=== PATIENT | male | born 1990 | race Caucasian/White ===

== ENCOUNTER 2023-05-30 16:32 | Emergency (ER) | payer OTHER, SELFPAY ==
--- NOTE | ~2023-05-30 | XR_ITS ---
XR forearm RT 2V 05/30/2023 16:53 INDICATION: Right arm pain. PROCEDURE: 2 views right forearm COMPARISON: No prior studies for comparison. FINDINGS: Fracture, dislocation or subluxation is not identified. The soft tissues appear within norm al limits. No foreign bodies are identified. IMPRESSION: 1: NO ACUTE BONE OR JOINT ABNORMALITY IDENTIFIED. Reviewed, dictated and finalized at location L.
[2023-05-30 16:38] VITALS: BP 137/85; PULSE 67; RESP 16; TEMP 36.3; O2SAT 100
--- NOTE | 2023-05-30 16:43 | ED.UPPEXIN ---
HPI - Extremity Injury (Upper) General Chief Complaint: Extremity Injury, Upper Stated Complaint: Right Arm Injury Source: patient and RN notes reviewed History of Present Illness HPI narrative: 32-year-old male presents to urgent care complaints of right forearm pain and swelling. Patient states 1 week ago he was 4 wheeling and denies any known injury but noticed and began to have pain in this area afterwards. Patient is also reporting some tingling in his right fingers are min. Denies any wrist pain, fevers, chills, chest shortness of breath, or other complaints. Patient has taken Tylenol at home with minimal relief. Related Data Home Medications Medication Instructions Recorded Confirmed No Home Medications 05/30/23 05/30/23 Allergies Allergy/AdvReac Type Severity Reaction Status Date / Time No Known Allergies Allergy Verified 05/30/23 16:48 Review of Systems Review of Systems: CONSTITUTIONAL: Denies fever, chills, or sweats. EYES: Denies visual changes, redness, or discharge. ENT: Denies otalgia and sore throat CARDIOVASCULAR: Denies chest pain, palpitations, or edema. RESPIRATORY: Denies cough or dyspnea. GASTROINTESTINAL: Denies abdominal pain, nausea, vomiting, or diarrhea. GENITOURINARY: Denies dysuria or hematuria. SKIN: Denies rash or itching. MUSCULOSKELETAL: Right forearm pain NEUROLOGIC: Denies headache, numbness, or weakness. Pertinent positives per HPI. PMFSH Comments At the time of my signature, I reviewed and agree with the nursing past medical, surgical, social, and family history. There is no relevant family history pertinent to the patient complaint. Exam Narrative: GENERAL: This is a well-nourished, well-developed patient, in no apparent distress. HEAD: normocephalic, atraumatic. EYES: Sclera clear/white. Vision is grossly intact. EARS: External ears normal, auditory canals clear and without drainage. Hearing grossly intact. NOSE: External nose normal with no obvious nasal discharge, nares without redness, no rhinorrhea. THROAT: Mucous membranes moist, posterior pharynx clear. NECK: Neck supple, non-tender without lymphadenopathy, masses or thyromegaly. CARDIOVASCULAR: Regular rate and rhythm without murmurs, gallops, or rubs. RESPIRATORY: Clear to auscultation. Breath sounds equal bilaterally. No wheezes, rales, or rhonchi. GASTROINTESTINAL: Abdomen soft, non-tender, nondistended. Bowel sounds are active. No hepato-splenomegaly, or palpable masses. No guarding. SKIN: warm, intact with no suspicious lesions or rash, good texture and turgor. NEURO: awake, alert, and oriented to person, place and time. There were no obvious focal neurologic abnormalities. EXTREMITIES: Slight swelling and tednerness to right distal forearm, on radial side. Pt has full ROM. BACK: Nontender without deformity or crepitus. No flank tenderness. Course Course Level of Care: Express Care Visit Vital Signs Vital signs: Vital Signs Temperature 97.3 F L 05/30/23 16:38 Pulse Rate 67 05/30/23 16:38 Respiratory Rate 16 05/30/23 16:38 Blood Pressure 137/85 05/30/23 16:38 Pulse Oximetry 100 05/30/23 16:38 Oxygen Delivery Room Air 05/30/23 16:38 Temperature 97.3 F L 05/30/23 16:38 Pulse Rate 67 05/30/23 16:38 Respiratory Rate 16 05/30/23 16:38 Blood Pressure 137/85 05/30/23 16:38 Pulse Oximetry 100 05/30/23 16:38 Oxygen Delivery Room Air 05/30/23 16:38 Reviewed MDM - Extremity Injury (Upper) MDM Narrative Medical decision making narrative: Use the RICE method at home. May take ibuprofen and/or Tylenol if needed. If symptoms persist in 1 week after conservative treatment, follow-up with specialist. Differential Diagnosis Differential diagnosis: Likely sprain and strain of wrist, fracture of wrist and other (tendonitis) Imaging Data Radiologist's impression: [facility] [id number] [place] [address] XRay Report Signed
== END 2023-05-30 17:30 | disposition home or self-care (01) ==
PROVIDERS: Emergency Provider Nurse Practitioner Family
DX: S56.911A Strain of unspecified muscles, fascia and tendons at forearm level, right arm, initial encounter (principal); X58.XXXA Exposure to other specified factors, initial encounter
CPT/HCPCS: 73090; 99213; G0463

== ENCOUNTER 2024-07-28 15:52 | Emergency (ER) | payer OTHER, SELFPAY ==
[2024-07-28 15:59] VITALS: BP 132/87; PULSE 84; RESP 16; TEMP 36.7; O2SAT 98
--- NOTE | 2024-07-28 16:12 | ED.URI ---
HPI - URI/Sore Throat General Chief Complaint: Upper Respiratory Infection Stated Complaint: Sore Throat Time Seen by Provider: 07/28/24 16:10 Source: patient, RN notes reviewed and old records reviewed Mode of arrival: ambulatory Limitations: no limitations History of Present Illness HPI Narrative: 33year old male who presents to [facility] care with complaints of scratchy sore throat for 2 to 3 days with some runny nose and cough with no known fevers noted or any chills or sweats. Patient reports that it hurts to swallow. Patient reports that he has been taking DayQuil and NyQuil for his symptoms MD elicited complaint: cough, sore throat, rhinorrhea and nasal congestion Onset (ago): day(s) (2 to 3 days) Consistency: constant Pain scale (0-10): 3 Able to tolerate fluids by mouth: Yes Treatments prior to arrival: other (DayQuil) Related Data Allergies Allergy/AdvReac Type Severity Reaction Status Date / Time No Known Allergies Allergy Verified 07/28/24 16:10 Review of Systems Review of Systems: CONSTITUTIONAL: Reports malaise,no chills, sweats, or fever. EYES: Denies visual changes, redness, or discharge. ENT: Reports rhinorrhea, congestion,no sinus pain, no otalgia and positive for sore throat. CARDIOVASCULAR: Denies chest pain, palpitations, or edema. RESPIRATORY: Reports cough.? Denies dyspnea. GASTROINTESTINAL: Denies abdominal pain, nausea, vomiting, diarrhea SKIN: Denies rash or itching. MUSCULOSKELETAL: Denies myalgia. NEUROLOGIC: Denies headache. All systems reviewed & are unremarkable except as noted in HPI and below PMFSH Past Medical History Medical History (Updated 07/29/24 @ 16:13 by Marie Ash NP) Fracture of wrist Surgical History Surgical History (Updated 07/29/24 @ 16:12 by Marie Ash NP) Hx of tooth extraction Social History Social History (Updated 07/29/24 @ 16:07 by Marie Ash NP) Smoking status: Current every day smoker Tobacco type: e-cigarettes/vaping Alcohol intake: current Alcohol use details: social Substance use type: does not use Gender identity (if verbalized by the patient): Male Comments At time of signature, agree with nursing past medical, surgical, social and family history. There is no relevant family history pertinent to the presenting complaint Exam Narrative: GENERAL: Well-appearing, well-nourished, and in no acute distress. HEAD: Normocephalic EYES: PERRLA, conjunctivae clear ENT: Nares clear, turbinates edematous and erythematous, clear discharge. Mucous membranes moist. TM pearly jarrett with dull light reflex bilaterally; no tragal tenderness. Oropharynx erythematous without lesions. Tonsils not enlarged and without exudate, no drooling, no hoarseness, no trismus, uvula midline, post nasal drainage noted. NECK: Supple. No lymphadenopathy CHEST: Clear to auscultation, breath sounds equal. No wheezing, rhonchi, rales, or stridor. No respiratory distress, speaks in full sentences.cough noted SAO2 98% on room air HEART: Regular rate and rhythm. No murmur heard. SKIN: Warm, dry, no rash. NEURO: Alert and oriented x3. PSYCH: Normal mood and affect Course Course Emergency Course: Patient is aware of diagnosis, understands and agrees to treatment plan.? Anticipatory guidance given.? Patient agrees to follow-up as directed and is aware of reasons to seek care at the emergency department. Portions of this record may have been created with voice recognition software Level of Care: Express Care Visit Vital Signs Vital signs: Vital Signs Temperature 36.7 C 07/28/24 15:59 Pulse Rate 84 07/28/24 15:59 Respiratory Rate 16 07/28/24 15:59 Blood Pressure 132/87 07/28/24 15:59 Pulse Oximetry 98 07/28/24 15:59 Oxygen Delivery Room Air 07/28/24 15:59 Temperature 36.7 C 07/28/24 15:59 Pulse Rate 84 07/28/24 15:59 Respiratory Rate 16 07/28/24 15:59 Blood Pressure 132/8
[2024-07-28 16:16] LABS: EDSTREPNEGPOS1 Negative (Negative)
== END 2024-07-28 16:29 | disposition home or self-care (01) ==
PROVIDERS: Emergency Provider Registered Nurse; PCP Internal Medicine
DX: J06.9 Acute upper respiratory infection, unspecified (principal); J02.9 Acute pharyngitis, unspecified; F17.290 Nicotine dependence, other tobacco product, uncomplicated
CPT/HCPCS: 87081; 87880; 99213; G0463